=== PATIENT | male | born 1930 | race Caucasian/White ===

== ENCOUNTER 2017-11-28 11:34 | Inpatient (IN) | payer MEDICARE ==
[~2017-11-28] VITALS: Ht 180.3 cm; Wt 105.0 kg
[~2017-11-28 11:34] MED LIST: ATORVASTATIN CA10 MG PO; CARTIA XT240 MG PO; DOXAZOSIN; DOXAZOSIN MESYLA4 MG PO; LIPITOR20 MG PO; LISINOPRIL PO; LISINOPRIL10 MG PO; METOPROLOL TART50 MG PO; TOVIAZ4 MG PO; VESICARE5 MG PO; Z.0.ASPIRIN325 MG PO; Z.0.PLAVIX75 MG PO
[2017-11-28 18:24] LABS: BASOPHILS # (AUTO) 0.1 (0.0-0.1); BASOPHILS % 0.5 % (0.0-1.0); EOSINOPHILS # (AUTO) 0.2 (0.0-0.4); EOSINOPHILS % 1.8 % (0.0-6.0); HEMATOCRIT 43.3 % (38.2-49.6); HEMOGLOBIN 13.3 g/dL (14.0-18.0); LYMPHOCYTES # (AUTO) 1.1 (1.0-3.2); LYMPHOCYTES % 12.3 % (18.0-39.1); MEAN CORPUSCULAR HEMOGLOBIN 26.9 pg (28-32); MEAN CORPUSCULAR HGB CONC 30.7 g/dL (31-35); MEAN CORPUSCULAR VOLUME 87.5 fL (81-99); MONOCYTES # (AUTO) 0.9 (0.2-0.8); MONOCYTES % 9.5 % (4.4-11.3); NEUTROPHILS # (AUTO) 6.9 (2.1-6.9); NEUTROPHILS % 75.4 % (38.7-80.0); PLATELET COUNT 279 x10e3/uL (140-360); RED BLOOD COUNT 4.95 x10e6/uL (4.3-5.7); RED CELL DISTRIBUTION WIDTH 13.7 % (11.7-14.4)
[2017-11-28 18:31] LABS: INR 1.09; PROTHROMBIN TIME 13.3 seconds (11.9-14.5)
[2017-11-28 18:32] LABS: PARTIAL THROMBOPLASTIN TIME 41.6 seconds (23.8-35.5)
[2017-11-28 18:40] LABS: ALBUMIN 3.7 g/dL (3.5-5.0); ALBUMIN/GLOBULIN RATIO 0.9 (0.8-2.0); ANION GAP 14.2 mmol/L (8-16); CALCIUM 8.6 mg/dL (8.4-10.2); CREATININE, SERUM 1.29 mg/dL (0.72-1.25); POTASSIUM 4.2 mmol/L (3.5-5.1)
[2017-11-28 18:47] LABS: CREATINE KINASE MB 2.6 ng/mL (0-5.0)
--- NOTE | 2017-11-28 19:14 | Diagnostic Imaging Report ---
EXAMINATION: CHEST SINGLE (PORTABLE) INDICATION: Dyspnea COMPARISON: Chest x-ray 01/07/2016 FINDINGS: AP view TUBES and LINES: Median sternotomy wires. LUNGS: Lungs are well inflated. There is perihilar interstitial opacities, consistent with interstitial edema. PLEURA: No pleural effusion or pneumothorax. HEART AND MEDIASTINUM: Cardiac size is severely enlarged. BONES AND SOFT TISSUES: No acute osseous lesion. Soft tissues are unremarkable. UPPER ABDOMEN: No free air under the diaphragm. IMPRESSION: Severe cardiomegaly with interstitial edema. Signed by: Dr. Erick Lockwood M.D. on 11/28/2017 7:10 PM
--- NOTE | 2017-11-28 19:46 | Diagnostic Imaging Report ---
EXAMINATION: Head CT without contrast. HISTORY:Altered mental status and weakness. COMPARISON:CT brain from 07/17/2014 and report of MRI brain from 07/18/14 TECHNIQUE: Multidetector axial images were obtained from the foramen magnum to the vertex without contrast. The images were reconstructed using brain and bone algorithms. Thin section brain images were reformatted into coronal and sagittal planes. Intravenous contrast: None IMAGE QUALITY: Acceptable. FINDINGS: Skull/scalp: No abnormality. Parenchyma: Unchanged nonspecific bilateral frontoparietal confluent periventricular and patchy subcortical and deep white matter hypodensity are likely related to small vessel ischemic changes. Cortical-based hypodensity in right middle frontal gyrus represents chronic encephalomalacia from prior vascular insult. Old lacunar infarct in bilateral putamen and left caudate head. No acute hemorrhage, mass or acute major vascular territorial infarct. Arteries: Atherosclerotic calcification in bilateral carotid siphon. Dural sinuses: No abnormal density suggestive of thrombosis. Ventricles: Mild compensated dilatation due to volume loss. No hydrocephalus. Extra-axial spaces: No abnormal density. Brain volume: Normal for age. Craniocervical junction: No mass, Chiari malformation, or basilar invagination. Sella: No mass. Paranasal/mastoid sinuses: Imaged portions unremarkable. IMPRESSION: No acute intracranial abnormality. No change since CT head from 07/17/2014. Chronic findings: 1. Moderate supratentorial white matter microvascular ischemic changes. 2. 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 3. 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 Signed by: Dr. Poonam Dow M.D. on 11/28/2017 7:43 PM
[2017-11-28 19:57] LABS: BILIRUBIN,URINE NEGATIVE (NEGATIVE); CLARITY,URINE SL CLOUDY (CLEAR); COLOR,URINE YELLOW (YELLOW); KETONES,URINE NEGATIVE (NEGATIVE); LEUKOCYTE ESTERASE ,URINE NEGATIVE (NEGATIVE); NITRITE,URINE NEGATIVE (NEGATIVE); PROTEIN,URINE DIPSTICK NEGATIVE (NEGATIVE); URINE UROBILINOGEN 0.2 mg/dL (0.2 - 1)
[2017-11-28 20:22] LABS: EPITHELIAL CELLS,URINE FEW /LPF; RBC,URINE 0-5 /HPF (0-5); WBC,URINE (MAN) 0-5 /HPF (0-5)
[2017-11-28] MEDS: FUROSEMIDE INJ 10 MG/ML 4 ML VIAL IV ONE ×2 (20:35→21:00)
[2017-11-28 22:39] VITALS: BP 153/90
[2017-11-28 23:37] VITALS: BP 153/90
[2017-11-29] VITALS (8 sets, daily range): BP systolic 115–145; BP diastolic 60–72
--- NOTE | 2017-11-29 06:49 | Diagnostic Imaging Report ---
CHEST SINGLE (PORTABLE), 11/29/2017 7:00 AM Technique: CHEST SINGLE (PORTABLE) Comparison: 11/28/2017 Clinical history: CHF Findings: See Impression Impression: 1. Stable enlarged cardiomediastinal silhouette poststernotomy 2. Persistent edema with bibasilar atelectasis and pleural effusions. Signed by: Dr Pinky Oseguera MD on 11/29/2017 6:45 AM
[2017-11-29] MEDS: FUROSEMIDE INJ 10 MG/ML 4 ML VIAL IV SCH ×2 (07:56→18:02)
[2017-11-29 08:01] LABS: BASOPHILS # (AUTO) 0.1 (0.0-0.1); BASOPHILS % 0.8 % (0.0-1.0); EOSINOPHILS # (AUTO) 0.1 (0.0-0.4); EOSINOPHILS % 1.8 % (0.0-6.0); HEMATOCRIT 43.6 % (38.2-49.6); HEMOGLOBIN 13.4 g/dL (14.0-18.0); LYMPHOCYTES # (AUTO) 0.9 (1.0-3.2); LYMPHOCYTES % 11.9 % (18.0-39.1); MEAN CORPUSCULAR HEMOGLOBIN 27.2 pg (28-32); MEAN CORPUSCULAR HGB CONC 30.7 g/dL (31-35); MEAN CORPUSCULAR VOLUME 88.6 fL (81-99); MONOCYTES # (AUTO) 0.7 (0.2-0.8); MONOCYTES % 9.8 % (4.4-11.3); NEUTROPHILS # (AUTO) 5.7 (2.1-6.9); PLATELET COUNT 225 x10e3/uL (140-360); RED BLOOD COUNT 4.92 x10e6/uL (4.3-5.7); RED CELL DISTRIBUTION WIDTH 13.7 % (11.7-14.4)
[2017-11-29 08:48] LABS: ALANINE AMINOTRANSFERASE 17 IU/L (0-55); ALBUMIN 3.3 g/dL (3.5-5.0); ALBUMIN/GLOBULIN RATIO 0.9 (0.8-2.0); ALKALINE PHOSPHATASE 70 IU/L (40-150); ANION GAP 14.1 mmol/L (8-16); BLOOD UREA NITROGEN 21 mg/dL (7-26); BUN/CREATININE RATIO 19 (6-25); CALCIUM 9.3 mg/dL (8.4-10.2); CARBON DIOXIDE 30 mmol/L (22-29); CHLORIDE 103 mmol/L (98-107); CREATINE KINASE 68 IU/L (30-200); EST GLOMERULAR FILTRATION RATE > 60 ML/MIN (60-); GLUCOSE 99 mg/dL (74-118); POTASSIUM 4.1 mmol/L (3.5-5.1); SODIUM 143 mmol/L (136-145)
[2017-11-29] MEDS: NYSTATIN 15 GM POWDER UD BTL TOP SCH ×2 (09:00→18:03)
[2017-11-29] MEDS ORDERED: KLOR-CON M1010 MEQ PO (12:02)
[2017-11-29] MEDS ORDERED: LASIX40 MG PO (12:03)
[2017-11-29] MEDS ORDERED: METOPROLOL TART50 MG PO (12:04)
[2017-11-29] MEDS ORDERED: HYDRALAZINE HCL25 MG PO ×2 (12:04→12:06)
[2017-11-29 13:20] LABS: CREATINE KINASE MB 1.6 ng/mL (0-5.0)
[2017-11-29] MEDS: HYDRALAZINE HCL 100 MG TABLET PO SCH ×2 (14:00→21:45)
[2017-11-29] MEDS ORDERED: FUROSEMIDE 40 MG TAB PO SCH (17:00)
[2017-11-29] MEDS: METOPROLOL TARTRATE 50 MG TAB PO SCH (18:03)
[2017-11-29] MEDS ORDERED: ACETAMINOPHEN 325 MG TAB PO PRN (19:45)
[2017-11-29] MEDS: ATORVASTATIN 20 MG TAB PO SCH (21:40)
[2017-11-30 00:36] VITALS: BP 141/59
[2017-11-30 04:48] VITALS: BP 136/61
[2017-11-30 07:59] LABS: BASOPHILS % 0.4 % (0.0-1.0); EOSINOPHILS # (AUTO) 0.1 (0.0-0.4); EOSINOPHILS % 1.1 % (0.0-6.0); HEMATOCRIT 40.3 % (38.2-49.6); HEMOGLOBIN 12.2 g/dL (14.0-18.0); LYMPHOCYTES # (AUTO) 0.8 (1.0-3.2); LYMPHOCYTES % 8.5 % (18.0-39.1); MEAN CORPUSCULAR HEMOGLOBIN 26.8 pg (28-32); MEAN CORPUSCULAR HGB CONC 30.3 g/dL (31-35); MEAN CORPUSCULAR VOLUME 88.4 fL (81-99); MONOCYTES % 10.5 % (4.4-11.3); NEUTROPHILS # (AUTO) 7.2 (2.1-6.9); NEUTROPHILS % 78.8 % (38.7-80.0); PLATELET COUNT 211 x10e3/uL (140-360); RED BLOOD COUNT 4.56 x10e6/uL (4.3-5.7); RED CELL DISTRIBUTION WIDTH 13.8 % (11.7-14.4)
[2017-11-30 08:24] LABS: ANION GAP 10.8 mmol/L (8-16); BLOOD UREA NITROGEN 27 mg/dL (7-26); BUN/CREATININE RATIO 25 (6-25); CALCIUM 9.2 mg/dL (8.4-10.2); CARBON DIOXIDE 33 mmol/L (22-29); CHLORIDE 101 mmol/L (98-107); CREATININE, SERUM 1.09 mg/dL (0.72-1.25); EST GLOMERULAR FILTRATION RATE > 60 ML/MIN (60-); GLUCOSE 115 mg/dL (74-118); MAGNESIUM 1.9 MG/DL (1.3-2.1); POTASSIUM 3.8 mmol/L (3.5-5.1); SODIUM 141 mmol/L (136-145)
[2017-11-30] MEDS: METOPROLOL TARTRATE 50 MG TAB PO SCH ×2 (08:42→17:28)
[2017-11-30] MEDS: CLOPIDOGREL BISULFATE 75 MG TAB PO SCH (08:42)
[2017-11-30] MEDS: ASPIRIN 325 MG TAB PO SCH (08:42)
[2017-11-30] MEDS: FUROSEMIDE INJ 10 MG/ML 4 ML VIAL IV SCH ×2 (08:42→17:28)
[2017-11-30] MEDS: HYDRALAZINE HCL 100 MG TABLET PO SCH ×3 (08:42→20:22)
[2017-11-30] MEDS: POTASSIUM CHLORIDE 10 MEQ TABCR PO SCH (08:42)
[2017-11-30] MEDS: LISINOPRIL 20 MG TAB PO SCH (08:43)
[2017-11-30] MEDS: NYSTATIN 15 GM POWDER UD BTL TOP SCH ×2 (08:43→17:28)
[2017-11-30 08:51] VITALS: BP 109/59
[2017-11-30] MEDS ORDERED: POTASSIUM CHLORIDE PO SCH (09:00)
[2017-11-30 11:53] VITALS: BP 102/51
[2017-11-30 16:21] VITALS: BP 116/56
[2017-11-30 20:06] VITALS: BP 88/47
[2017-11-30] MEDS: ATORVASTATIN 20 MG TAB PO SCH (20:22)
[2017-12-01] VITALS (8 sets, daily range): BP systolic 110–157; BP diastolic 53–70
[2017-12-01 07:08] LABS: BASOPHILS # (AUTO) 0.1 (0.0-0.1); BASOPHILS % 0.5 % (0.0-1.0); EOSINOPHILS # (AUTO) 0.1 (0.0-0.4); EOSINOPHILS % 1.4 % (0.0-6.0); HEMATOCRIT 39.9 % (38.2-49.6); HEMOGLOBIN 12.1 g/dL (14.0-18.0); LYMPHOCYTES % 9.5 % (18.0-39.1); MEAN CORPUSCULAR HEMOGLOBIN 26.9 pg (28-32); MEAN CORPUSCULAR HGB CONC 30.3 g/dL (31-35); MEAN CORPUSCULAR VOLUME 88.9 fL (81-99); MONOCYTES % 9.5 % (4.4-11.3); NEUTROPHILS # (AUTO) 8.1 (2.1-6.9); NEUTROPHILS % 78.6 % (38.7-80.0); PLATELET COUNT 219 x10e3/uL (140-360); RED BLOOD COUNT 4.49 x10e6/uL (4.3-5.7); RED CELL DISTRIBUTION WIDTH 13.7 % (11.7-14.4)
[2017-12-01 08:12] LABS: ANION GAP 14.1 mmol/L (8-16); CALCIUM 9.4 mg/dL (8.4-10.2); CREATININE, SERUM 1.59 mg/dL (0.72-1.25); POTASSIUM 4.1 mmol/L (3.5-5.1)
[2017-12-01] MEDS: NYSTATIN 15 GM POWDER UD BTL TOP SCH ×2 (09:00→18:13)
[2017-12-01] MEDS: LISINOPRIL 20 MG TAB PO SCH (09:00)
[2017-12-01] MEDS: METOPROLOL TARTRATE 50 MG TAB PO SCH ×2 (09:00→17:00)
[2017-12-01] MEDS: HYDRALAZINE HCL 100 MG TABLET PO SCH ×3 (09:11→21:00)
[2017-12-01] MEDS: CLOPIDOGREL BISULFATE 75 MG TAB PO SCH (09:11)
[2017-12-01] MEDS: POTASSIUM CHLORIDE 10 MEQ TABCR PO SCH (09:11)
[2017-12-01] MEDS: FUROSEMIDE INJ 10 MG/ML 4 ML VIAL IV SCH (09:11)
[2017-12-01] MEDS: ASPIRIN 325 MG TAB PO SCH (09:11)
[2017-12-01 09:33] LABS: ABG HCO3 36 mmol/L (23-28); ABG PCO2 62 mmHg (41-51); ABG PH 7.37 (7.31-7.41); ABG PO2 83 mmHg (80-105)
--- NOTE | 2017-12-01 09:36 | Consultation ---
DATE OF CONSULTATION: December 01, 2017 CARDIOLOGY CONSULTATION REASON FOR CONSULTATION: CHF. HPI: This is an 87-year-old male that presented with altered mental status. According to the medical record, he was brought in by the family due to increased altered mental status, refusing to eat or drink, and having increased shortness of breath. According to the family, also he had multiple falls with chronic back pain. Family also complained he is unable to swallow, unable to control his bowel or bladder. He is needing total care at home. He has a history of CAD and denies any chest pain, dizziness or palpitations. His BNP was 367. Chest x-ray showed persistent edema with some pleural effusion. He is alert and oriented times 1 to self. PAST MEDICAL HISTORY: Hypertension, [place], colon cancer, CAD, Rae's palsy, aortic stenosis, and bilateral carotid stenosis. PAST SURGICAL HISTORY: Knee replacement times 2, gallbladder removal, appendectomy, cardiac stents, open heart surgery, bilateral carotid endarterectomy, hernia repair, and colon resection. MEDICATIONS: See med list. ALLERGIES: HE IS NOT ALLERGIC TO ANY MEDICATIONS. REVIEW OF SYSTEMS: Negative except those mentioned above. Positive for shortness of breath. SOCIAL HISTORY: He lives at home with the family. PHYSICAL EXAMINATION VITAL SIGNS: Temperature 97, heart rate 59, blood pressure 128/60, respirations 20, oxygen saturation 95% on room air. . GENERAL: He is awake, alert and oriented times 1. HEENT: Mucous membrane moist. NECK: Supple. LUNGS: Bilateral with decreased breath sounds. CARDIOVASCULAR: S1 and S2 present. ABDOMEN: Soft. NEUROLOGICAL: Alert and oriented times 1. EXTREMITIES: With no edema. LABS: Sodium 141, potassium 3.8, chloride 101, CO2 33, BUN 27, creatinine 1.07, glucose 115. White blood cells 10.3, hemoglobin 12.1, hematocrit 39.9, and platelets 219,000. PT 13.3, PTT 41.6 and INR 1.09. IMPRESSION 1. Systolic congestive heart failure, [id number]. 2. Aortic stenosis. 3. Coronary artery disease with coronary artery bypass graft. 4. Altered mental status. 5. Hypertension. 6. Multiple falls. 7. Anemia. ASSESSMENT AND PLAN: Will go ahead and continue with IV diuresis. Echo showed EF 30% to 35% with aortic stenoses. Put him on fluid restriction. Continue home medications. Further cardiac workup pending clinical course. Thank you for this consultation. DICTATED BY MAGDA LYONS NP Job#: [id number]
--- NOTE | 2017-12-01 14:38 | Diagnostic Imaging Report ---
PROCEDURE: A single AP view of the chest. COMPARISON: 11/29/2017 INDICATIONS: SHORTNESS OF BREATH FINDINGS: Lines/tubes: None. Lungs: Low lung volumes with bibasilar atelectasis. Pleura: Bilateral pleural effusions. No pneumothorax. Heart and mediastinum: Enlarged cardiac silhouette, unchanged. Bones: No acute bony abnormality. IMPRESSION: Cardiomegaly with basilar atelectasis and bilateral pleural effusions. No significant change since 11/29/2017. Dictated by: Ruperto Horowitz M.D. on 12/01/2017 at 14:37 Electronically approved by: Ruperto Horowitz M.D. on 12/01/2017 at 14:37
--- NOTE | 2017-12-01 17:18 | Consultation ---
DATE OF CONSULTATION: PULMONARY CONSULTATION REASON FOR CONSULTATION: Shortness of breath and hypercapnia. HISTORY OF PRESENT ILLNESS: Mr. Abdul is an 87-year-old male who has been in the hospital since 28 of November for congestive heart failure. Patient presented with decompensated systolic heart failure, and Cardiology was consulted. Patient has been on diuretics. Today he was more lethargic, short of breath, and chest x-ray got worse. ABG was done, which showed evidence of hypercapnia; so, pulmonary consultation was called. Patient's reported that the patient has history of obstructive sleep apnea and has used CPAP machine a long time but it has been broken for a couple of years and he has not used. He is sleepy but arousable and is able to answer questions. He denies any chest pain, nausea, vomiting or diarrhea. REVIEW OF SYSTEMS: GENERAL: Denies any fever or chills. HEAD: Denies any trauma or head injury. ENT: Denies any earache, nosebleed, throat pain. CVS: Denies any chest pain. RESPIRATORY: Some shortness of breath. GI: Denies any nausea or vomiting. REST OF THE REVIEW SYSTEMS: Are negative except as in history of present illness. PAST MEDICAL HISTORY: History of colon cancer, hypertension, Rae's palsy, coronary artery disease. PAST SURGICAL HISTORY: CABG, cholecystectomy. FAMILY HISTORY: Coronary artery disease. SOCIAL HISTORY: He smoked for a few years when he was in his 20s but quit smoking 35+ years ago. PHYSICAL EXAMINATION: VITALS: Temperature 98, pulse of 63, blood pressure 140/63, respiratory rate of 18, O2 sat 94% on 2 liters. SKIN: Warm and dry. GENERAL APPEARANCE: He is an elderly male in mild respiratory distress. He is arousable but sleepy, following commands and oriented to place and person, disoriented to time. HEENT: Head atraumatic, normocephalic. Patient has Rae's palsy with facial droop. Oral mucosa moist. Oropharynx clear. NECK: Supple. No JVD. CHEST: Clear to auscultation bilaterally. Reduced air entry on the bases. HEART: S1/S2 audible. ABDOMEN: Soft, nontender, nondistended. EXTREMITIES: No pedal edema. NEUROLOGICALLY: Sleepy but arousable, following commands, answering questions but goes back to sleep. No focal neurologic deficit except Rae's palsy. ABG: pH of 7.37, pCO2 of 62, and bicarbonate of 36. This was done at 9 o'clock this morning. Chemistry: Sodium 143, potassium 4.1, bicarb is 31, BUN 39, creatinine 1.59. When he came in, creatinine was 1.10 to 1.29. Patient's bicarb was in 30s when he came in. ASSESSMENT AND PLAN: An 87-year-old male with worsening hypercapnia, shortness of breath. Chest x-ray film is reviewed. It is showing right pleural effusion and right lower lobe infiltrate. Differential would be new right lower lobe hospital-acquired pneumonia along with pleural effusion. ABG is showing evidence of acute and chronic hypercapnia with pH being normal. Patient's bicarbonate has been in 30s since admission. Hence, patient has chronic hypercapnia secondary to obstructive sleep apnea/obesity-hypoventilation syndrome. PLAN: 1. Start the patient on IV Zosyn for hospital-acquired pneumonia. 2. Send off sputum culture if the patient can bring up phlegm. 3. BiPAP 09/19, especially during hours of sleep. I will start the patient on continuous for now. 4. Ultrasound of the chest. 5. Right-sided thoracentesis. Will follow along with you. Thank you for this consult. Job#: [id number] EV
[2017-12-01] MEDS: PIPER-TAZ 3.375 GM 50 ML IV SCH ×2 (17:50→21:55)
[2017-12-01] MEDS: ATORVASTATIN 20 MG TAB PO SCH (21:00)
[2017-12-01] MEDS ORDERED: SODIUM CHLORIDE 0.9% 250ML 250 ML ONE (21:50)
[2017-12-02 03:48] VITALS: BP 144/65
[2017-12-02] MEDS: PIPER-TAZ 3.375 GM 50 ML IV SCH ×3 (05:07→21:57)
[2017-12-02 07:14] LABS: BASOPHILS % 0.4 % (0.0-1.0); EOSINOPHILS # (AUTO) 0.1 (0.0-0.4); EOSINOPHILS % 0.9 % (0.0-6.0); HEMATOCRIT 42.8 % (38.2-49.6); HEMOGLOBIN 12.8 g/dL (14.0-18.0); LYMPHOCYTES # (AUTO) 0.8 (1.0-3.2); LYMPHOCYTES % 7.8 % (18.0-39.1); MEAN CORPUSCULAR HEMOGLOBIN 26.7 pg (28-32); MEAN CORPUSCULAR HGB CONC 29.9 g/dL (31-35); MEAN CORPUSCULAR VOLUME 89.4 fL (81-99); MONOCYTES # (AUTO) 0.9 (0.2-0.8); MONOCYTES % 9.2 % (4.4-11.3); NEUTROPHILS # (AUTO) 8.3 (2.1-6.9); NEUTROPHILS % 81.2 % (38.7-80.0); PLATELET COUNT 211 x10e3/uL (140-360); RED BLOOD COUNT 4.79 x10e6/uL (4.3-5.7); RED CELL DISTRIBUTION WIDTH 13.5 % (11.7-14.4)
[2017-12-02 07:32] VITALS: BP 150/68
[2017-12-02 07:42] LABS: ANION GAP 14.4 mmol/L (8-16); CALCIUM 9.6 mg/dL (8.4-10.2); CREATININE, SERUM 1.35 mg/dL (0.72-1.25); POTASSIUM 4.4 mmol/L (3.5-5.1)
[2017-12-02] MEDS ORDERED: HYDRALAZINE HCL 20 MG/ML VIAL IV PRN (08:45)
[2017-12-02] MEDS: CLOPIDOGREL BISULFATE 75 MG TAB PO SCH (09:00)
[2017-12-02] MEDS: ASPIRIN 325 MG TAB PO SCH (09:00)
[2017-12-02] MEDS: METOPROLOL TARTRATE 50 MG TAB PO SCH ×2 (09:00→17:00)
[2017-12-02] MEDS: POTASSIUM CHLORIDE 10 MEQ TABCR PO SCH (09:00)
[2017-12-02] MEDS: LISINOPRIL 20 MG TAB PO SCH (09:00)
[2017-12-02] MEDS: HYDRALAZINE HCL 100 MG TABLET PO SCH ×3 (09:00→21:57)
[2017-12-02] MEDS: FUROSEMIDE INJ 10 MG/ML 4 ML VIAL IV SCH (09:22)
[2017-12-02] MEDS: NYSTATIN 15 GM POWDER UD BTL TOP SCH ×2 (09:22→17:47)
[2017-12-02 11:43] VITALS: BP 122/51
--- NOTE | 2017-12-02 12:02 | Diagnostic Imaging Report ---
PROCEDURE:US CHEST (INCL MEDIASTINUM) COMPARISON:None. INDICATIONS:PLEURAL EFFUSION FINDINGS: Transverse and sagittal images of the chest were performed for documentation of pleural effusion. Examination shows moderate right and mild left pleural effusions, with compressive atelectasis of bilateral lower lobes. CONCLUSION: 1. Moderate right and mild left pleural effusions. Ángel Ojeda M.D. Dictated by: Ángel Ojeda M.D. on 12/02/2017 at 12:01 Electronically approved by: Ángel Ojeda M.D. on 12/02/2017 at 12:01
--- NOTE | 2017-12-02 12:18 | Diagnostic Imaging Report ---
PROCEDURE: ULTRASOUND GUIDED THORACENTESIS COMPARISON: None. INDICATIONS:THORACENTESIS FINDINGS: After informed consent was obtained, the patient was placed in the sitting position and preliminary ultrasound of the posterior chest identified a safe route into the large right pleural effusion. The overlying skin was prepped and draped in usual sterile fashion. Lidocaine 1% was used for local anesthesia. Under ultrasound guidance, a centesis needle was advanced into the pleural fluid and 1100 cc were aspirated. The patient tolerated the procedure well and there were no immediate post-procedural complications. A post-thoracentesis chest radiograph will be obtained. CONCLUSION: Uncomplicated ultrasound-guided right thoracentesis with removal of 1100 cc. Moderate right pleural effusion remained. Repeat thoracentesis in several days may be of additional clinical benefit. Dictated by: Rolf Black M.D. on 12/02/2017 at 12:17 Electronically approved by: Rolf Black M.D. on 12/02/2017 at 12:17
--- NOTE | 2017-12-02 12:25 | Diagnostic Imaging Report ---
PROCEDURE: CHEST XRAY POST PROCEDURE COMPARISON: Portable chest 12/01/2017. INDICATIONS: POST THORACENTESIS FINDINGS: LUNGS: No consolidations or edema. PLEURA: Small right pleural effusion. No pneumothorax. HEART \T\ MEDIASTINUM: The heart is within normal size-limits. BONES \T\ SOFT TISSUES: No acute findings. Median sternotomy wires. CONCLUSION: No pneumothorax status post right thoracentesis. Small right pleural effusion. Dictated by: Rolf Black M.D. on 12/02/2017 at 12:25 Electronically approved by: Rolf Black M.D. on 12/02/2017 at 12:25
[2017-12-02 13:24] LABS: BODY FLUID APPEARANCE SL.CLOUDY; BODY FLUID COLOR YELLOW; BODY FLUID TYPE PLEURAL
[2017-12-02 13:53] LABS: RBC,BODY FLUID 2549 cells/uL; WBC,BODY FLUID 1089 cells/uL
[2017-12-02 14:00] LABS: EOSINOPHILS,BODY FLUID 9 %; LYMPHOCYTES,BODY FLUID 19 %; MONO/MACROPHG,BODY FLUID 5 %; NEUTROPHILS,BODY FLUID 63 %; OTHER CELLS,BODY FLUID 4 %
[2017-12-02 15:20] VITALS: BP 136/66
--- NOTE | 2017-12-02 16:58 | Diagnostic Imaging Report ---
PROCEDURE:X-RAY MODIFIED BARIUM SWALLOW COMPARISON:None. INDICATIONS:Dysphagia DISCUSSION:Fluoroscopic examination was performed in conjunction with speech pathology, during swallowing of a variety of thin and thick liquid consistencies. Examination showed no premature spillage to vallecula or piriform sinus. Laryngeal penetration was noted with large straw sip thin liquids. Trace silent aspiration with straw sip thin liquids. No piriform sinus, pharyngeal wall or base of tongue residue. CONCLUSION:Trace, silent aspiration, as described. Please see the report from speech pathology for complete details. Ángel Ojeda M.D. Dictated by: Ángel Ojeda M.D. on 12/02/2017 at 16:57 Electronically approved by: Ángel Ojeda M.D. on 12/02/2017 at 16:57
[2017-12-02 20:00] VITALS: BP 128/61
[2017-12-02 21:24] VITALS: BP 136/66
[2017-12-02] MEDS: ATORVASTATIN 20 MG TAB PO SCH (21:57)
[2017-12-03] VITALS: BP 123/58
[2017-12-03 04:00] VITALS: BP 134/62
[2017-12-03 07:33] LABS: BASOPHILS # (AUTO) 0.1 (0.0-0.1); BASOPHILS % 0.6 % (0.0-1.0); EOSINOPHILS # (AUTO) 0.1 (0.0-0.4); EOSINOPHILS % 0.8 % (0.0-6.0); HEMATOCRIT 40.5 % (38.2-49.6); HEMOGLOBIN 12.3 g/dL (14.0-18.0); LYMPHOCYTES # (AUTO) 0.7 (1.0-3.2); LYMPHOCYTES % 5.5 % (18.0-39.1); MEAN CORPUSCULAR HEMOGLOBIN 26.7 pg (28-32); MEAN CORPUSCULAR HGB CONC 30.4 g/dL (31-35); MONOCYTES # (AUTO) 1.1 (0.2-0.8); MONOCYTES % 9.1 % (4.4-11.3); NEUTROPHILS # (AUTO) 10.4 (2.1-6.9); NEUTROPHILS % 83.5 % (38.7-80.0); PLATELET COUNT 251 x10e3/uL (140-360); RED CELL DISTRIBUTION WIDTH 13.6 % (11.7-14.4)
[2017-12-03 07:52] LABS: ANION GAP 16.2 mmol/L (8-16); CALCIUM 9.8 mg/dL (8.4-10.2); CREATININE, SERUM 1.3 mg/dL (0.72-1.25); POTASSIUM 4.2 mmol/L (3.5-5.1)
[2017-12-03 08:00] VITALS: BP 152/63
[2017-12-03] MEDS: LISINOPRIL 20 MG TAB PO SCH (09:00)
[2017-12-03] MEDS: NYSTATIN 15 GM POWDER UD BTL TOP SCH ×2 (09:00→17:00)
[2017-12-03] MEDS: FUROSEMIDE INJ 10 MG/ML 4 ML VIAL IV SCH (09:00)
[2017-12-03] MEDS: CLOPIDOGREL BISULFATE 75 MG TAB PO SCH (09:00)
[2017-12-03] MEDS: HYDRALAZINE HCL 100 MG TABLET PO SCH ×2 (09:00→15:45)
[2017-12-03] MEDS: METOPROLOL TARTRATE 50 MG TAB PO SCH ×2 (09:00→17:00)
[2017-12-03] MEDS: ASPIRIN 325 MG TAB PO SCH (09:00)
[2017-12-03] MEDS: POTASSIUM CHLORIDE 10 MEQ TABCR PO SCH (09:00)
[2017-12-03 12:00] VITALS: BP 97/58
[2017-12-03] MEDS: PIPER-TAZ 3.375 GM 50 ML IV SCH (14:30)
[2017-12-03 16:00] VITALS: BP 123/65
== END 2017-12-03 19:00 | DRG 291 ==
LOC: ER 11:34 → ERHOLD 21:15 → MED/SURG3 21:38
PROVIDERS: ADMIT Internal Medicine; ATTEND Internal Medicine
PROC: 0W993ZX Drainage of Right Pleural Cavity, Percutaneous Approach, Diagnostic (ICD-10-PCS; principal; 2017-11-28)
DX: I13.0 Hypertensive heart and chronic kidney disease with heart failure and stage 1 through stage 4 chronic kidney disease, or unspecified chronic kidney disease (principal); G92 Toxic encephalopathy; J18.9 Pneumonia, unspecified organism; N17.9 Acute kidney failure, unspecified; J90 Pleural effusion, not elsewhere classified; D64.9 Anemia, unspecified; N18.3 Chronic kidney disease, stage 3 (moderate); F03.90 Unspecified dementia, unspecified severity, without behavioral disturbance, psychotic disturbance, mood disturbance, and anxiety; I50.23 Acute on chronic systolic (congestive) heart failure; E66.2 Morbid (severe) obesity with alveolar hypoventilation; I35.0 Nonrheumatic aortic (valve) stenosis; R06.89 Other abnormalities of breathing; Z95.1 Presence of aortocoronary bypass graft; Z91.81 History of falling; I25.10 Atherosclerotic heart disease of native coronary artery without angina pectoris; G47.33 Obstructive sleep apnea (adult) (pediatric); G51.0 Bell's palsy; Z68.32 Body mass index [BMI] 32.0-32.9, adult; Z85.038 Personal history of other malignant neoplasm of large intestine; Z90.49 Acquired absence of other specified parts of digestive tract
CPT/HCPCS: 32555; 36415; 36600; 70450; 71045; 74230; 74470; 76604; 80048; 80053; 81001; 82550; 82553; 82805; 83615; 83735; 83880; 84157; 84484; 85025; 85610; 85730; 87070; 87086; 87205; 88112; 89051; 93005; 93306; 96374; 99284; J1940; J2543; J7050